=== PATIENT | female | born 1985 | race African-American/Black ===

== ENCOUNTER 2019-09-15 16:49 | Emergency (ER) | payer OTHER ==
[2019-09-15] MEDS ORDERED: ACETAMINOPHEN 325 MG TABLET (FP) PO ONE (16:54)
[2019-09-15] MEDS ORDERED: IBUPROFEN 600 MG TABLET (FP) PO ONE (16:55)
[2019-09-15 17:11] VITALS: BMI 31.1
--- NOTE | 2019-09-15 17:12 | PDOC ---
History of Present Illness - General Chief Complaint: Pain Stated Complaint: LEFT FOOT PAIN FOR OVER 1 MONTH Time Seen by Provider: 09/15/19 16:54 History Source: Patient Exam Limitations: No Limitations - History of Present Illness Initial Comments: Rebecca is a 33 yo F w a hx of anemia, CVA, menorrhagia, blood transfusion (x2) who presents to the [place] ER with 2 months of left foot pain. States she has seen multiple doctors for her pain and has tried tylenol, ibuprofen and icy hot in the past but the pain is particularly intense today so came in for evaluation. She was seen at the [facility] on 07/15 and referred to ortho for her foot pain but she never followed up because she has been busy with her kids. States now she is starting to lose sensation in her left toes and the pain is worsening. Patient denies injury, rash, fever, swelling, recent travel, hormone use, anticoagulation use, recent surgery, recent injury, bedrest, history of malignancy. Patient reported at the time of day does not make a difference in her pain. PCP: Follows at [facility] PSH: 4 C-sections, 1 hernia repair Allergies: NKA, NKDA Social Hx: Smokes 4 cigarettes daily, smokes marijuana daily, drinks recreationally, denies illicit drug usage. Past History - Medical History Allergies/Adverse Reactions: Allergies Allergy/AdvReac Type Severity Reaction Status Date / Time No Known Allergies Allergy Verified 09/15/19 16:51 Home Medications: Ambulatory Orders NK [No Known Home Medication] 09/15/19 Asthma: Yes CVA: Yes (stroke 2009) COPD: No - Surgical History Abdominal Surgery: (hernia) - Reproductive History Therapeutic (s) & number: Yes - Immunization History Td Vaccination: Yes TDAP Vaccination: Yes Immunization Up to Date: Yes - Psycho-Social/Smoking History Smoking History: Current every day smoker Number of Cigarettes Smoked Daily: 5 Information on smoking cessation initiated: Yes 'Breaking Loose' booklet given: 02/14/13 - Substance Abuse Hx (Audit-C & DAST Scrn) How often the patient has a drink containing alcohol: 2-4 times / month Number of drinks the patient has on a typical day: 5 or 6 Score: In Men: 4 or > Positive; In Women: 3 or > Positive: 4 Screen Result (Pos requires Nsg. Audit-10AR): Positive In the last yr the pt used illegal drug/Rx for NonMed reason: Yes Score: Yes response is considered Positive: 1 Screen Result (Positive result requires Nsg. DAST-10): Positive Review of Systems - Review of Systems Able to Perform ROS?: Yes Comments:: CONSTITUTIONAL: Absent: fever, no chills, no fatigue EYES: Absent: visual changes ENT: Absent: ear pain, no sore throat CARDIOVASCULAR: Absent: chest pain, no palpitations RESPIRATORY: Absent: cough, no SOB GI: Absent: abdominal pain, no nausea, no vomiting, no constipation, no diarrhea GENITOURINARY: Absent: dysuria, no frequency, no hematuria MUSKULOSKELETAL: Present: Arthralgia Absent: back pain, no myalgia SKIN: Absent: rash NEURO: Absent: headache *Physical Exam - Vital Signs Last Vital Signs Temp Pulse Resp BP Pulse Ox 98.7 F 100 H 18 143/90 98 09/15/19 16:51 09/15/19 16:51 09/15/19 16:51 09/15/19 16:51 09/15/19 16:51 - Physical Exam LEFT LEG: Normal appearance. Decreased DP and PT pulses. Decreased sensation in left toes compared to right. Normal ROM and 5/5 strength compared to the right foot. No gangrenous areas. Left foot is cold and painful compared to the right foot. Left 4th toe has an ulcer on the bottom of it. GENERAL: Well-appearing, well-nourished. No apparent distress. HEENT: Normocephalic, atraumatic. PERRL, EOM intact. CARDIOVASCULAR: Normal S1, S2. Regular rate and rhythm. PULMONARY: No evidence of respiratory distress. Lungs clear to auscultation bilaterally. No wheezing, rales or rhonchi. ABDOMEN: Soft, non-distended, non-tender. EXTREMITIES: Normal ROM in all four extremities. No gross deformities. SKIN: Warm, dry. No rash NEUROLOGICAL: No focal neurological deficits. ED Treatment Course - LABORATORY CBC & Chemistry Diagram: 09/15/19 19:05 09/15/19 19:05 - RADIOLOGY Radiology Studies Ordered: Category Date Time Status FOOT-LEFT [RAD] Stat Radiology 09/15/19 16:54 Taken Radiograph Interpretation: CTA: CTA abdomen and pelvis: No evidence for abdominal aortic aneurysm or aortic dissection. Celiac trunk, SMA, BETH, and renal arteries are patent. 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 This results in severe (approximately 80-90%) stenosis of this portion of the common iliac artery as well as occlusion of the left internal iliac artery. Right iliac arteries are patent. Mild hepatomegaly. The gallbladder, pancreas, adrenal glands, and spleen are unremarkable. No renal or urinary calculi. Small left ovarian follicles measuring up to 1.4 cm. No evidence for diverticulitis, small bowel obstruction, free fluid, or free air. Appendix not seen with certainty. Fluid and debris in the vaginal vault. CTA left lower extremity:*Occlusion of the distal left superficial femoral artery extending to the tibial peroneal trunk. Several small calf arteries are reconstituted with some contrast noted in the small arteries of the foot on the plantar aspect. Common femoral artery, profunda femoris artery, and proximal and mid portions of the superficial femoral artery are patent. CTA right lower extremity: Common femoral artery, profundus femoral artery, superficial femoral artery, and popliteal artery are patent. Calf arteries are small but many of them contain contrast extending into the plantar and dorsal arteries of the right foot. Medical Decision Making - Medical Decision Making Rebecca is a 33 yo F w a hx of anemia, CVA, menorrhagia, blood transfusion (x2) who presents to the [place] ER with 2 months of left foot pain. States she has seen multiple doctors for her pain and has tried tylenol, ibuprofen and icy hot in the past but the pain is particularly intense today so came in for evaluation. She was seen at the [facility] on 07/15 and referred to ortho for her foot pain but she never followed up because she has been busy with her kids. States now she is starting to lose sensation in her left toes and the pain is worsening. Patient denies injury, rash, fever, swelling, recent travel, hormone use, anticoagulation use, recent surgery, recent injury, bedrest, history of malignancy. Patient reported at the time of day does not make a difference in her pain. Vital Signs Temp Pulse Resp BP Pulse Ox 98.7 F 100 H 18 143/90 98 09/15/19 16:51 09/15/19 16:51 09/15/19 16:51 07/28/20 16:51 09/15/19 16:51 DDx IBNLT: Fracture, vascular pathology, less likely infectious MDM: This patient appears to have an underlying chronic vascular issue but what she is here today for is not acute. She needs chronic vascular, podiatric, and wound care treatment. Plan: XR, basic labs, CTA of extremity to r/o arterial occlusion, analgesia, vascular/podiatry/wound care referal if CTA negative XR: No subQ emphysema or acute fx on my preliminary read EKG: NS rate of 89, pr 160, narrow complexes, qrs 82, normal axis, no hypertrophy, no ST elevations or depressions, QTc 464, TWI in V2 likely persistent juvenile T wave. 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 This results in severe (approximately 80-90%) stenosis of this portion o f the common iliac artery as well as occlusion of the left internal iliac artery. Re-assessment: Patient will be signed out to Dr. Frazier for further ED care. 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
[2019-09-15] MEDS ORDERED: IBUPROFEN 400 MG TABLET (FP) PO ONE (17:30)
[2019-09-15] MEDS ORDERED: ACETAMINOPHEN 500 MG TABLET (FP) ONE (17:30)
--- NOTE | 2019-09-15 17:55 | PDOC ---
Attending Attestation - Resident Resident Name: Lamont Liu - ED Attending Attestation I have performed the following: I have examined & evaluated the patient, The case was reviewed & discussed with the resident, I agree w/resident's findings & plan - HPI HPI: 09/15/19 17:49 33y/o F with sig h/o Anemia requiring transfusions in the past presumably from menorrhagia, CVA x2 with residual right upper extremity weakness and dysarthria presents now with subacute left foot pain progressive over several weeks. Patient reports random intermittent episodes of left toe/distal foot paresthesias, was actually seen on 07/16/2019 for similar complaints, DVT was ruled out at that time and patient was referred to orthopedics. Patient reports intermittent symptoms since then, not necessarily exertional, described primarily as paresthesias. Today at around 3 PM while seated at home, developed what she describes as acute onset of paresthesias and discomfort to her dorsal left foot and toes, so she presents for evaluation. Patient was previously on Eliquis but stopped several months ago secondary to contradictory physician recommendations. She denies any change in her dysarthria, arm or leg weakness otherwise. - Physicial Exam PE: 09/15/19 17:53 Vital signs stable, heart rate 90 on my examination Alert seated comfortably in stretcher speaking full sentences with baseline dysarthria Heart is regular without appreciable murmur, lungs are clear Abdomen benign 4-5 upper extremity strength on the right as per baseline, 5 out of 5 left upper extremity and bilateral lower extremity strength, though 4 out of 5 strength noted on left foot dorsiflexion and toe range of motion. Palpable TP pulse on the left, difficult to palpate DP pulse on the left. Toes are slightly cool on the left, sensation is subjectively decreased, there is otherwise good cap refill but some tenderness to palpation along the dorsum of the foot and ankle without crepitus or cellulitis - Medical Decision Making 09/15/19 17:55 33-year-old female with history of anemia and unclear vasculopathy with history of CVA, off anticoagulation for several months now with progressive symptoms of left foot paresthesias and pain, reportedly acutely worsened at 3 PM and now associated with some distal left foot discomfort and weakness. Overall presentation is not necessarily consistent with CVA or TIA, but peripheral limb ischemia is of concern given the focal findings. No evidence of active gangrene, but the proximal foot tenderness to palpation is somewhat concerning. Check labs CTA of the left lower leg Vascular consult as needed Anticoagulation as needed If above is within normal limits, would refer to wound clinic for chronic vascular disease and possible superimposed neuropathy Heart Score/ECG Review #1 ECG reviewed & interpreted by me at: 18:11 General ECG Interpretation: Sinus Rhythm, Normal Rate (89), Normal Intervals (qtc 464), No acute ischemic changes Discharge - Discharge Information Problems reviewed: Yes Clinical Impression/Diagnosis: Vasculopathy Foot pain Qualifiers: Laterality: left Qualified Code(s): M79.672 - Pain in left foot Condition: Stable Disposition: HOME - Follow up/Referral Referrals: Jean Pierre Beltran DO [Staff Physician] - Bindu Garza DPM [Staff Physician] - - Patient Discharge Instructions Patient Printed Discharge Instructions: DI for Foot Pain, DI for Vasculitis Additional Instructions: You came into the ER with left foot pain. It is very important for you to follow up with the vascular surgeon we are referring you to as well as the foot doctor at the wound clinic. They will be able to best treat your foot pain. You must return to the Emergency Department with any new complaints, if your symptoms persist and do not improve or if you develop any other new or worsening concerns. As discussed, please call to follow up with your Primary Care physician in 1-2 days to discuss what happened to you in the emergency room, and make sure you are being looked after and taken care of. Your emergency room visit is not complete without this follow up appointment. Please read the attached handouts for further information about your ER visit and what you should do moving forward. Thank you for coming to the [place] [facility]. We hope you feel better soon! Print Language: MARTINIQUAIS - Post Discharge Activity
[2019-09-15 19:34] LABS: ALBUMIN 3.6 g/dl (3.4-5.0); BILIRUBIN,TOTAL 0.4 mg/dl (0.2-1); CALCIUM 8.7 mg/dl (8.5-10); CREATININE 0.6 mg/dl (0.55-1.3); MCHC 29.8 g/dl (32.0-36.0); MEAN PLT VOLUME 7.1 fl (7.5-11.1); PLATELET COUNT 429 K/MM3 (134-434); RBC 3.67 M/mm3 (3.60-5.2); RDW 21.3 % (11.6-15.6); TOT PROT 7.1 g/dl (6.4-8.2); WHITE BLOOD COUNT 11.6 K/mm3 (4.0-10.8)
[2019-09-15 19:35] LABS: MCH 17.6 pg (25.7-33.7)
[2019-09-15 19:37] LABS: HEMATOCRIT 21.6 % (32.4-45.2); HEMOGLOBIN 6.4 GM/dl (10.7-15.3)
[2019-09-15 20:05] LABS: ANISOCYTOSIS 3+; PLATELET ESTIMATE SLT INCREASE
--- NOTE | 2019-09-15 23:36 | PDOC ---
*Physical Exam - Vital Signs Last Vital Signs Temp Pulse Resp BP Pulse Ox 98.7 F 100 H 18 143/90 98 09/15/19 16:51 09/15/19 16:51 09/15/19 16:51 09/15/19 16:51 09/15/19 16:51 ED Treatment Course - LABORATORY CBC & Chemistry Diagram: 09/15/19 19:05 09/15/19 19:05 - ADDITIONAL ORDERS Additional order review: Laboratory Results 09/15/19 09/15/19 19:05 19:05 Sodium 134 L Potassium 3.0 L Chloride 98 Carbon Dioxide 25 Anion Gap 11 BUN 4.0 L Creatinine 0.6 Est GFR (CKD-EPI)AfAm 136.87 Est GFR (CKD-EPI)NonAf 118.09 Random Glucose 106 Calcium 8.7 Total Bilirubin 0.4 AST 16 ALT 14 Alkaline Phosphatase 58 Creatine Kinase 48 Total Protein 7.1 Albumin 3.6 Serum , Qual Negative 09/15/19 19:05 RBC 3.67 MCV 59.0 L MCHC 29.8 L RDW 21.3 H MPV 7.1 L Neutrophils % No Result Required. Lymphocytes % No Result Required. - RADIOLOGY Radiology Studies Ordered: Category Date Time Status ABDOMEN CTA AOR & BLE RUNOFF [CT] Stat CT Scan 09/15/19 20:15 Taken - Medications Given in the ED: ED Medications Discontinued Medications Generic Name Dose Route Start Last Admin Trade Name Freq PRN Reason Stop Dose Admin Acetaminophen 1,000 mg 09/15/19 16:54 09/15/19 17:33 Tylenol - PO 09/15/19 16:55 1,000 mg ONCE ONE Administration Ibuprofen 400 mg 09/15/19 16:55 09/15/19 17:32 Motrin - PO 09/15/19 16:56 400 mg ONCE ONE Administration ED Progress Note - Progress Note Progress Note: 09/15/19 1900 This is a 33-year-old female whose care was transferred to ri from Dr. Yañez at 1900 hrs. 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
[2019-09-16] MEDS ORDERED: HEPARIN NA (PORCINE) 5,000 UNITS/ML 1ML VIAL IVPUSH ONE (00:11)
[2019-09-16] MEDS ORDERED: HEPARIN NA (PORCINE) 5,000 UNITS/ML 1ML VIAL ONE (00:39)
[2019-09-16 00:55] VITALS: BP 126/86; PULSE 88; TEMP 98.2
[2019-09-16 01:43] LABS: INR 1.18 (0.83-1.09); PROTHROMBIN TIME (PATIENT) 13.9 SEC (9.7-13.0)
[2019-09-16 01:46] LABS: ACTIVATED PTT 24.8 SECONDS (25.2-36.5)
--- NOTE | 2019-09-16 09:14 | EKG ---
Test Reason : Blood Pressure : / mmHG Vent. Rate : 089 BPM Atrial Rate : 089 BPM P-R Int : 160 ms QRS Dur : 082 ms QT Int : 382 ms P-R-T Axes : 076 076 060 degrees QTc Int : 464 ms NORMAL SINUS RHYTHM NORMAL ECG WHEN COMPARED WITH ECG OF 29-OCT-2015 01:57, NO SIGNIFICANT CHANGE WAS FOUND Confirmed by MD RYAN PENG ([id number]) on 09/16/2019 9:14:35 AM Referred By: DR LEMA Confirmed By:COLTON RYAN MD
== END 2019-09-16 00:56 | disposition short-term general hospital (02) ==
LOC: FER 16:49
PROC: 3E033NZ Introduction of Analgesics, Hypnotics, Sedatives into Peripheral Vein, Percutaneous Approach (ICD-10-PCS; principal; 2019-09-15)
DX: M79.642 Pain in left hand (principal); I70.92 Chronic total occlusion of artery of the extremities
CPT/HCPCS: 36415; 73630-TC-LT; 75635-TC; 80053; 82550; 84703; 85025; 85610; 85730; 93005; 99285-25; J1644; Q9967

== ENCOUNTER 2020-08-08 11:22 | Emergency (ER) | payer OTHER ==
[2020-08-08 11:29] VITALS: BMI 32.8
[2020-08-08] MEDS ORDERED: SODIUM CHLORIDE 1,000 ML IV STA (12:28)
[2020-08-08] MEDS ORDERED: morphine CARPU-JECT 4 MG/1 ML DISP.SYRIN IVPUSH ONE (12:28)
[2020-08-08] MEDS ORDERED: ONDANSETRON 4 MG/2 ML VIAL IVPUSH ONE (12:28)
[2020-08-08] MEDS ORDERED: morphine SULFATE 4 MG/ML VIAL ONE (12:36)
[2020-08-08] MEDS ORDERED: ONDANSETRON 4 MG/2 ML VIAL ONE (12:36)
[2020-08-08 13:33] LABS: CHLORIDE 106 mmol/L (98-107); SODIUM 138 mmol/L (136-145)
[2020-08-08 13:35] LABS: CALCIUM 8.9 mg/dL (8.5-10.1)
[2020-08-08 13:36] LABS: ALBUMIN 3.8 g/dl (3.4-5.0); ANION GAP 8 MMOL/L (8-16); BLOOD UREA NITROGEN 9.6 mg/dL (7-18); CO2 24 mmol/L (21-32); GLUCOSE,RANDOM 95 mg/dL (74-106); LIPASE 67 U/L (73-393)
[2020-08-08 13:39] LABS: CREATININE 0.8 mg/dL (0.55-1.3); HEMATOCRIT 25.1 % (32.4-45.2); HEMOGLOBIN 7.2 GM/dL (10.7-15.3); MCH 15.2 pg (25.7-33.7); MCHC 28.7 g/dl (32.0-36.0); MEAN CELL VOLUME 53.1 fl (80-96); MEAN PLT VOLUME 8.2 fl (7.5-11.1); PLATELET COUNT 481 10^3/uL (134-434); RBC 4.73 M/mm3 (3.60-5.2); RDW 20.6 % (11.6-15.6); SGOT/AST 56 U/L (15-37); SGPT/ALT 16 U/L (13-61); WHITE BLOOD COUNT 14.4 K/mm3 (4.0-10.0)
[2020-08-08 13:40] LABS: BILIRUBIN,TOTAL 0.5 mg/dL (0.2-1); TOT PROT 8.3 g/dl (6.4-8.2)
[2020-08-08 13:42] LABS: ALK PHOS 81 U/L (45-117)
[2020-08-08 14:17] LABS: ANISOCYTOSIS 3+; MACROCYTOSIS 0; PLATELET ESTIMATE NORMAL; TARGET CELLS 1+
[2020-08-08 15:15] LABS: BLOOD UREA NITROGEN 8.9 mg/dL (7-18); CALCIUM 8.4 mg/dL (8.5-10.1)
[2020-08-08 15:19] LABS: CREATININE 0.7 mg/dL (0.55-1.3)
[2020-08-08 15:58] LABS: EPI CELLS 34 /uL (0-25.1); HCG,QUALITATIVE URINE Negative; HYALINE CASTS 5 /uL (0-3.1); PH,URINE 6.5 (5.0-8.0); URINE APPEARANCE CLOUDY; URINE BACTERIA >9,000 /uL (0-1359); URINE BILIRUBIN NEGATIVE (NEGATIVE); URINE COLOR YELLOW; URINE GLUCOSE (UA) NEGATIVE (NEGATIVE); URINE KETONE TRACE (NEGATIVE); URINE LEUK ESTERASE TRACE (NEGATIVE); URINE NITRITE POSITIVE (NEGATIVE); URINE PROTEIN 1+ (NEGATIVE); URINE RBC 18 /uL (0-23.9); URINE WBC 27 /uL (0-25.8)
[2020-08-08 17:59] VITALS: BP 142/81; PULSE 82; TEMP 98.2
== END 2020-08-08 19:07 | disposition home or self-care (01) ==
LOC: JER 11:22
PROC: 3E033NZ Introduction of Analgesics, Hypnotics, Sedatives into Peripheral Vein, Percutaneous Approach (ICD-10-PCS; principal; 2020-08-08)
PROC: 3E033GC Introduction of Other Therapeutic Substance into Peripheral Vein, Percutaneous Approach (ICD-10-PCS; 2020-08-08)
PROC: 3E0337Z Introduction of Electrolytic and Water Balance Substance into Peripheral Vein, Percutaneous Approach (ICD-10-PCS; 2020-08-08)
DX: N10 Acute pyelonephritis (principal)
CPT/HCPCS: 36415; 71046-TC-FY; 74176-TC; 76705-TC; 80048; 80053; 81003; 82550; 82553; 83690; 84484; 84703; 85025; 87086; 87186; 93005; 93010; 99285-25; C9803; U0003; U0005

== ENCOUNTER 2020-09-14 18:24 | Observation (INO) | payer OTHER ==
[2020-09-14 21:43] LABS: HEMATOCRIT 23.8 % (32.4-45.2); MCHC 29.2 g/dl (32.0-36.0); MEAN CELL VOLUME 51.7 fl (80-96); MEAN PLT VOLUME 8.1 fl (7.5-11.1); PLATELET COUNT 386 10^3/uL (134-434); RDW 20.4 % (11.6-15.6); WHITE BLOOD COUNT 10.5 K/mm3 (4.0-10.0)
[2020-09-14 21:54] LABS: CHLORIDE 105 mmol/L (98-107); SODIUM 139 mmol/L (136-145)
[2020-09-14 21:56] LABS: ALBUMIN 3.9 g/dl (3.4-5.0); ANION GAP 8 MMOL/L (8-16); CALCIUM 8.7 mg/dL (8.5-10.1); CO2 27 mmol/L (21-32); GLUCOSE,RANDOM 81 mg/dL (74-106)
[2020-09-14 21:57] LABS: BLOOD UREA NITROGEN 6.1 mg/dL (7-18)
[2020-09-14 21:58] LABS: INR 1.13 (0.83-1.09); PROTHROMBIN TIME (PATIENT) 13.8 SEC (9.7-13.0)
[2020-09-14 21:59] LABS: CREATININE 0.7 mg/dL (0.55-1.3); SGPT/ALT 14 U/L (13-61)
[2020-09-14 22:00] LABS: MCH 15.1 pg (25.7-33.7); SGOT/AST 13 U/L (15-37)
[2020-09-14 22:01] LABS: BILIRUBIN,TOTAL 0.3 mg/dL (0.2-1); HEMOGLOBIN 6.9 GM/dL (10.7-15.3); TOT PROT 8.1 g/dl (6.4-8.2)
[2020-09-14 22:02] LABS: ALK PHOS 77 U/L (45-117)
[2020-09-14 22:39] LABS: ANISOCYTOSIS 3+; MACROCYTOSIS 0; OVALOCYTE 1+; PLATELET ESTIMATE NORMAL; TARGET CELLS 2+
[2020-09-15 01:03] LABS: IRON SERUM 8 ug/dL (50-175); TOTAL IRON BINDING CAPACITY 458 ug/dL (250-450)
[2020-09-15] MEDS ORDERED: IRON SUCROSE INJECTION 100 MG in SODIUM CHLORIDE 95 ML IVPB ONE (05:36)
[2020-09-15] MEDS ORDERED: NICOTINE 7 MG/24 HOURS TOPICAL PATCH TD PRN (05:38)
[2020-09-15 05:57] LABS: HEMATOCRIT 24.5 % (32.4-45.2); HEMOGLOBIN 7.4 GM/dL (10.7-15.3); MCHC 30.3 g/dl (32.0-36.0); MEAN CELL VOLUME 55.8 fl (80-96); MEAN PLT VOLUME 8.2 fl (7.5-11.1); PLATELET COUNT 329 10^3/uL (134-434); RBC 4.38 M/mm3 (3.60-5.2); RDW 20.7 % (11.6-15.6); WHITE BLOOD COUNT 10.2 K/mm3 (4.0-10.0)
[2020-09-15 06:04] LABS: MCH 16.9 pg (25.7-33.7)
[2020-09-15 06:14] LABS: CHLORIDE 109 mmol/L (98-107); SODIUM 142 mmol/L (136-145)
[2020-09-15 06:23] LABS: CALCIUM 8.3 mg/dL (8.5-10.1)
[2020-09-15 06:24] LABS: ALBUMIN 3.2 g/dl (3.4-5.0); ANION GAP 7 MMOL/L (8-16); BLOOD UREA NITROGEN 5.2 mg/dL (7-18); CO2 26 mmol/L (21-32); GLUCOSE,RANDOM 88 mg/dL (74-106)
[2020-09-15 06:26] LABS: SGPT/ALT 10 U/L (13-61)
[2020-09-15 06:27] LABS: CREATININE 0.7 mg/dL (0.55-1.3); SGOT/AST 11 U/L (15-37)
[2020-09-15 06:28] LABS: BILIRUBIN,TOTAL 0.5 mg/dL (0.2-1); TOT PROT 6.7 g/dl (6.4-8.2)
[2020-09-15 06:29] LABS: ALK PHOS 65 U/L (45-117)
[2020-09-15] MEDS ORDERED: FERROUS SO4 300 MG/5 ML ORAL SOLN UNIT DOSE CUPS PO SCH (10:00)
[2020-09-15 13:40] VITALS: BMI 35.4
[2020-09-15] MEDS ORDERED: GABAPENTIN 300 MG CAPSULE PO SCH (14:00)
[2020-09-15 15:34] VITALS: BP 110/52; PULSE 67; TEMP 97.9
== END 2020-09-15 15:58 | disposition left against medical advice (07) ==
LOC: JER 18:24 → INTOOBSV 22:05 → UNDOADMOB 22:05 → JERBED 22:05 → J5S 09-15 07:01 → JERBED 09-15 08:51 → J5S 09-15 08:51
PROVIDERS: ADMIT Internal Medicine; ATTEND Nurse Practitioner Acute Care
PROC: 30233N1 Transfusion of Nonautologous Red Blood Cells into Peripheral Vein, Percutaneous Approach (ICD-10-PCS; principal; 2020-09-15)
PROC: 3E033GC Introduction of Other Therapeutic Substance into Peripheral Vein, Percutaneous Approach (ICD-10-PCS; 2020-09-15)
DX: N92.0 Excessive and frequent menstruation with regular cycle (principal); D62 Acute posthemorrhagic anemia; E66.8 Other obesity; Z68.35 Body mass index [BMI] 35.0-35.9, adult; Z86.19 Personal history of other infectious and parasitic diseases; Z86.73 Personal history of transient ischemic attack (TIA), and cerebral infarction without residual deficits; R47.81 Slurred speech; Z89.612 Acquired absence of left leg above knee; F17.210 Nicotine dependence, cigarettes, uncomplicated
CPT/HCPCS: 36415; 36430; 80053; 82272; 82728; 83540; 83550; 84702; 85025; 85027; 85045; 85610; 86850; 86900; 86901; 86922; 93005; 93010; 93971-TC; 96365; 99285-25; C9803; G0378; J1756; P9058; U0003; U0005

== ENCOUNTER 2021-04-12 00:09 | Emergency (ER) | payer OTHER ==
[2021-04-12 00:43] VITALS: BP 114/79; TEMP 99.1; BMI 32.9
[2021-04-12] MEDS ORDERED: LIDOCAINE 1%/EPI 1:100000 (20 ML MULTI DOSE VIAL) ONE (01:39)
[2021-04-12 03:06] VITALS: PULSE 88
== END 2021-04-12 03:05 | disposition home or self-care (01) ==
LOC: JER 00:09 → JERFT 00:09
PROC: 0H9AXZZ Drainage of Inguinal Skin, External Approach (ICD-10-PCS; principal; 2021-04-12)
DX: L02.214 Cutaneous abscess of groin (principal)
CPT/HCPCS: 99283-25

== ENCOUNTER 2021-04-13 17:59 | Emergency (ER) | payer OTHER ==
[2021-04-13 18:13] VITALS: BP 110/74; PULSE 94; BMI 35.4
== END 2021-04-13 18:58 | disposition home or self-care (01) ==
LOC: JERFT 17:59
DX: L02.214 Cutaneous abscess of groin (principal); Z48.01 Encounter for change or removal of surgical wound dressing
CPT/HCPCS: 99281-25

== ENCOUNTER 2022-01-03 18:53 | Inpatient (IN) | payer OTHER ==
[2022-01-03 21:08] LABS: MCHC 26.3 g/dl (32.0-36.0); MEAN CELL VOLUME 48.9 fl (80-96); MEAN PLT VOLUME 8.2 fl (7.5-11.1); PLATELET COUNT 456 10^3/uL (134-434); RBC 3.88 M/mm3 (3.60-5.2); WHITE BLOOD COUNT 10.4 K/mm3 (4.0-10.0)
[2022-01-03 21:14] LABS: INR 1.31 (0.83-1.09); PROTHROMBIN TIME (PATIENT) 15.1 SEC (9.7-13.0)
[2022-01-03 21:17] LABS: ACTIVATED PTT 34.2 SECONDS (25.2-36.5)
[2022-01-03 21:21] LABS: CALCIUM 8.8 mg/dL (8.5-10.1); MCH 12.9 pg (25.7-33.7)
[2022-01-03 21:22] LABS: ALBUMIN 3.5 g/dl (3.4-5.0); BLOOD UREA NITROGEN 5.7 mg/dL (7-18); MAGNESIUM 1.8 mg/dL (1.8-2.4)
[2022-01-03 21:25] LABS: CREATININE 0.7 mg/dL (0.55-1.3)
[2022-01-03 21:26] LABS: TOT PROT 7.2 g/dl (6.4-8.2)
[2022-01-03 21:27] LABS: BILIRUBIN,TOTAL 0.2 mg/dL (0.2-1)
[2022-01-03 21:58] LABS: ANISOCYTOSIS 3+; MACROCYTOSIS 0; OVALOCYTE 1+
[2022-01-04 03:03] LABS: EPI CELLS 21 /uL (0-25.1); HYALINE CASTS 0 /uL (0-3.1); URINE APPEARANCE CLEAR; URINE BACTERIA >9,000 /uL (0-1359); URINE BILIRUBIN NEGATIVE (NEGATIVE); URINE COLOR YELLOW; URINE GLUCOSE (UA) NEGATIVE (NEGATIVE); URINE KETONE NEGATIVE (NEGATIVE); URINE LEUK ESTERASE TRACE (NEGATIVE); URINE NITRITE NEGATIVE (NEGATIVE); URINE PROTEIN NEGATIVE (NEGATIVE); URINE RBC 3 /uL (0-23.9); URINE UROBILINOGEN 0.2 mg/dL (0.2-1.0); URINE WBC 16 /uL (0-25.8)
[2022-01-04 03:39] VITALS: BMI 35.0
[2022-01-04] MEDS: APIXABAN 5 MG TABLET PO SCH ×2 (09:28→21:19)
[2022-01-04] MEDS ORDERED: ENOXAPARIN NA (PORCINE) 40 MG/0.4 ML DISP.SYRIN SQ SCH (10:00)
[2022-01-04 11:07] LABS: HEMATOCRIT 24.9 % (32.4-45.2); HEMOGLOBIN 7.3 GM/dL (10.7-15.3); MCHC 29.2 g/dl (32.0-36.0); MEAN CELL VOLUME 55.9 fl (80-96); MEAN PLT VOLUME 8.1 fl (7.5-11.1); PLATELET COUNT 374 10^3/uL (134-434); RBC 4.44 M/mm3 (3.60-5.2); RDW 33.4 % (11.6-15.6); WHITE BLOOD COUNT 8.5 K/mm3 (4.0-10.0)
[2022-01-04 11:14] LABS: MCH 16.3 pg (25.7-33.7)
[2022-01-04 11:28] LABS: CALCIUM 8.6 mg/dL (8.5-10.1)
[2022-01-04 11:29] LABS: BLOOD UREA NITROGEN 4.4 mg/dL (7-18)
[2022-01-04 11:32] LABS: CREATININE 0.6 mg/dL (0.55-1.3); PHOSPHOROUS 2.6 mg/dL (2.5-4.9)
[2022-01-04 19:20] LABS: ANISOCYTOSIS 3+; MACROCYTOSIS 1+; OVALOCYTE 1+; TARGET CELLS 1+
[2022-01-04 19:29] LABS: PLATELET ESTIMATE ADEQUATE
[2022-01-05] MEDS ORDERED: FERRIC CARBOXYMALTOSE 750 MG/15 ML VIAL IVPB ONE (08:04)
[2022-01-05] MEDS ORDERED: ACETAMINOPHEN 325 MG TABLET (FP) PO PRN (09:18)
[2022-01-05] MEDS: APIXABAN 5 MG TABLET PO SCH (09:18)
[2022-01-05 09:55] LABS: HEMATOCRIT 25.7 % (32.4-45.2); HEMOGLOBIN 7.5 GM/dL (10.7-15.3); MCHC 29.1 g/dl (32.0-36.0); MEAN CELL VOLUME 56.1 fl (80-96); MEAN PLT VOLUME 8.3 fl (7.5-11.1); PLATELET COUNT 355 10^3/uL (134-434); RBC 4.58 M/mm3 (3.60-5.2); RDW 33.4 % (11.6-15.6); RETICULOCYTES 1.32 % (0.5-1.5); WHITE BLOOD COUNT 8.4 K/mm3 (4.0-10.0)
[2022-01-05 09:56] LABS: MCH 16.3 pg (25.7-33.7)
[2022-01-05 11:07] LABS: ALBUMIN 3.3 g/dl (3.4-5.0); BLOOD UREA NITROGEN 4.4 mg/dL (7-18); CALCIUM 8.7 mg/dL (8.5-10.1); MAGNESIUM 1.9 mg/dL (1.8-2.4)
[2022-01-05 11:10] LABS: CREATININE 0.7 mg/dL (0.55-1.3); PHOSPHOROUS 2.9 mg/dL (2.5-4.9)
[2022-01-05 11:12] LABS: BILIRUBIN,TOTAL 1.9 mg/dL (0.2-1); TOT PROT 6.9 g/dl (6.4-8.2)
[2022-01-05 11:24] LABS: ANISOCYTOSIS 3+; MACROCYTOSIS 0; TARGET CELLS 2+; TEAR DROP CELLS 1+
[2022-01-05] MEDS ORDERED: IRON SUCROSE INJECTION 200 MG in SODIUM CHLORIDE 90 ML IVPB ONE (12:00)
[2022-01-05 15:42] VITALS: BP 107/66; PULSE 79; TEMP 98.2
[2022-01-05 20:34] VITALS: RESP 18
== END 2022-01-05 21:30 | disposition home or self-care (01) | DRG 532 ==
LOC: JER 18:53 → JERBED 21:32 → OBSVTOIN 01-04 00:44 → J6S 01-04 00:54
PROVIDERS: ADMIT Internal Medicine; ATTEND Internal Medicine
PROC: 30233N1 Transfusion of Nonautologous Red Blood Cells into Peripheral Vein, Percutaneous Approach (ICD-10-PCS; principal; 2022-01-03)
DX: N92.0 Excessive and frequent menstruation with regular cycle (principal); D50.0 Iron deficiency anemia secondary to blood loss (chronic); R53.1 Weakness; R11.10 Vomiting, unspecified; F17.210 Nicotine dependence, cigarettes, uncomplicated; F12.90 Cannabis use, unspecified, uncomplicated; R01.1 Cardiac murmur, unspecified; D25.9 Leiomyoma of uterus, unspecified; N83.202 Unspecified ovarian cyst, left side; N83.201 Unspecified ovarian cyst, right side; Z89.512 Acquired absence of left leg below knee; Z86.73 Personal history of transient ischemic attack (TIA), and cerebral infarction without residual deficits
CPT/HCPCS: 0241U-QW; 36415; 36430; 71045-TC-FY; 76830-TC; 80048; 80053; 81003; 82728; 83540; 83550; 83735; 84100; 84703; 85025; 85027; 85045; 85610; 85730; 86850; 86900; 86901; 86922; 93005; 93010; 93306-TC; 97116-GP; 97162-GP; 99285-25; G0378; J1756; P9058

== ENCOUNTER 2022-05-19 13:54 | Observation (INO) | payer OTHER ==
[2022-05-19 14:26] VITALS: RESP 18
[2022-05-19 15:34] LABS: INR 1.56 (0.83-1.09)
[2022-05-19 15:37] LABS: ACTIVATED PTT 36.2 SECONDS (25.2-36.5)
[2022-05-19 15:49] LABS: ALBUMIN 3.4 g/dl (3.4-5.0); BLOOD UREA NITROGEN 7.3 mg/dL (7-18); CALCIUM 8.8 mg/dL (8.5-10.1)
[2022-05-19 15:52] LABS: CREATININE 0.8 mg/dL (0.55-1.3)
[2022-05-19 15:54] LABS: BILIRUBIN,TOTAL 0.4 mg/dL (0.2-1); TOT PROT 7.4 g/dl (6.4-8.2)
[2022-05-19 15:59] LABS: HEMATOCRIT 20.5 % (32.4-45.2); MCHC 28.2 g/dl (32.0-36.0); MEAN PLT VOLUME 8.2 fl (7.5-11.1); PLATELET COUNT 353 10^3/uL (134-434); RBC 4.01 M/mm3 (3.60-5.2); RDW 20.9 % (11.6-15.6); WHITE BLOOD COUNT 7.1 K/mm3 (4.0-10.0)
[2022-05-19 16:02] LABS: MCH 14.4 pg (25.7-33.7)
[2022-05-19 16:03] LABS: HEMOGLOBIN 5.8 GM/dL (10.7-15.3)
[2022-05-19 16:46] LABS: ANISOCYTOSIS 3+; MACROCYTOSIS 0; OVALOCYTE 1+; TARGET CELLS 2+
[2022-05-19] MEDS ORDERED: POLYETHYLENE GLYCOL (HEALTHYLAX) 3350 17 GM PACKET PO PRN (17:51)
[2022-05-19] MEDS ORDERED: IRON SUCROSE INJECTION 100 MG in SODIUM CHLORIDE 95 ML IVPB ONE (17:53)
[2022-05-19 18:26] LABS: EPI CELLS 14 /uL (0-25.1); HYALINE CASTS 1 /uL (0-3.1); PH,URINE 6.5 (5.0-8.0); URINE APPEARANCE CLEAR; URINE BACTERIA >9,000 /uL (0-1359); URINE BILIRUBIN NEGATIVE (NEGATIVE); URINE COLOR YELLOW; URINE GLUCOSE (UA) NEGATIVE (NEGATIVE); URINE KETONE NEGATIVE (NEGATIVE); URINE LEUK ESTERASE NEGATIVE (NEGATIVE); URINE NITRITE POSITIVE (NEGATIVE); URINE PROTEIN NEGATIVE (NEGATIVE); URINE RBC 22 /uL (0-23.9); URINE UROBILINOGEN 0.2 mg/dL (0.2-1.0); URINE WBC 15 /uL (0-25.8)
[2022-05-20 05:27] VITALS: BMI 33.0
[2022-05-20] MEDS ORDERED: FERROUS SO4 325 MG TABLET (FP) PO SCH (10:00)
[2022-05-20] MEDS ORDERED: IRON SUCROSE INJECTION 100 MG in SODIUM CHLORIDE 95 ML IVPB ONE (10:44)
[2022-05-20 14:45] VITALS: BP 122/77; PULSE 74; TEMP 99.1
[2022-05-20 15:07] LABS: HEMATOCRIT 24.5 % (32.4-45.2); HEMOGLOBIN 7.4 GM/dL (10.7-15.3); MCHC 30.4 g/dl (32.0-36.0); MEAN PLT VOLUME 7.9 fl (7.5-11.1); PLATELET COUNT 286 10^3/uL (134-434); RBC 4.15 M/mm3 (3.60-5.2); RDW 33.4 % (11.6-15.6); WHITE BLOOD COUNT 7.1 K/mm3 (4.0-10.0)
[2022-05-20 15:21] LABS: MEAN CELL VOLUME 59.1 fl (80-96)
[2022-05-20 15:26] LABS: CALCIUM 8.6 mg/dL (8.5-10.1)
[2022-05-20 15:27] LABS: BLOOD UREA NITROGEN 5.3 mg/dL (7-18)
[2022-05-20 15:30] LABS: CREATININE 0.7 mg/dL (0.55-1.3)
[2022-05-20 16:19] LABS: ANISOCYTOSIS 3+; MACROCYTOSIS 0; OVALOCYTE 1+; TARGET CELLS 1+; TEAR DROP CELLS 1+
== END 2022-05-20 17:19 | disposition home or self-care (01) ==
LOC: JER 13:54 → JERBED 16:19 → J8W 05-20 00:29
PROVIDERS: ADMIT Internal Medicine; ATTEND Nurse Practitioner Family
PROC: 3E033GC Introduction of Other Therapeutic Substance into Peripheral Vein, Percutaneous Approach (ICD-10-PCS; principal; 2022-05-19)
PROC: 30233N1 Transfusion of Nonautologous Red Blood Cells into Peripheral Vein, Percutaneous Approach (ICD-10-PCS; 2022-05-19)
DX: D50.9 Iron deficiency anemia, unspecified (principal); F12.10 Cannabis abuse, uncomplicated; N92.1 Excessive and frequent menstruation with irregular cycle; Z86.73 Personal history of transient ischemic attack (TIA), and cerebral infarction without residual deficits; R42 Dizziness and giddiness; F17.210 Nicotine dependence, cigarettes, uncomplicated; D64.9 Anemia, unspecified; J45.909 Unspecified asthma, uncomplicated
CPT/HCPCS: 0241U-QW; 36415; 36430; 71045-TC-FY; 80048; 80053; 81003; 82272; 84484; 84703; 85025; 85610; 85730; 86850; 86900; 86901; 86922; 93005; 93010; 96365; 99285-25; G0378; J1756; P9058

== ENCOUNTER 2022-12-24 10:21 | Day surgery (SDC) | payer OTHER ==
[~2022-12-24 10:21] MED LIST: FERRIC CARBOXYMALTOSE 750 MG in SODIUM CHLORIDE 250 ML IVPB ONE
[2022-12-24 14:31] VITALS: BP 115/60; PULSE 60; RESP 18; TEMP 98.8
== END 2022-12-24 12:35 | disposition home or self-care (01) ==
LOC: JONCNONCHE 10:21 → J7W 10:22 → JONCNONCHE 12:35
PROVIDERS: ATTEND Internal Medicine Hematology & Oncology
PROC: 3E033GC Introduction of Other Therapeutic Substance into Peripheral Vein, Percutaneous Approach (ICD-10-PCS; principal; 2022-12-24)
DX: D50.0 Iron deficiency anemia secondary to blood loss (chronic) (principal)
CPT/HCPCS: 96365; J1439

== ENCOUNTER 2023-07-16 10:44 | Emergency (ER) | payer OTHER ==
[2023-07-16 11:02] VITALS: RESP 18; BMI 35.4
[2023-07-16] MEDS: SODIUM CHLORIDE 0.9% 500 ML INFUS.BAG IV ONE (11:29)
[2023-07-16 11:32] LABS: BASO % 0.5 % (0-2.0); HEMATOCRIT 40.4 % (32.4-45.2); HEMOGLOBIN 12.9 GM/dL (10.7-15.3); LYMPH % 16.4 % (8-40); MCH 25.7 pg (25.7-33.7); MCHC 31.9 g/dl (32.0-36.0); MEAN CELL VOLUME 80.4 fl (80-96); MEAN PLT VOLUME 7.4 fl (7.5-11.1); MONO % 4.5 % (3.8-10.2); NEUT % 77.6 % (42.8-82.8); PLATELET COUNT 311 10^3/uL (134-434); RBC 5.02 M/mm3 (3.60-5.2); RDW 15.6 % (11.6-15.6); WHITE BLOOD COUNT 13.6 K/mm3 (4.0-10.0)
[2023-07-16] MEDS ORDERED: ONDANSETRON 4 MG/2 ML VIAL ONE (11:38)
[2023-07-16] MEDS: ONDANSETRON 4 MG/2 ML VIAL IVPUSH ONE (11:41)
[2023-07-16] MEDS ORDERED: FAMOTIDINE 20 MG/50 ML IVPB 20 MG/50 ML MG IVPB ONE (11:43)
[2023-07-16] MEDS ORDERED: ACETAMINOPHEN INJECTION 100 ML IVPB ONE (11:43)
[2023-07-16] MEDS: FAMOTIDINE 20 MG/50 ML IVPB 20 MG/50 ML MG IVPB ONE (11:44)
[2023-07-16] MEDS: ACETAMINOPHEN 1000 MG/100 ML BAG IVPB ONE (11:44)
[2023-07-16 12:06] LABS: POTASSIUM 3.2 mmol/L (3.5-5.1)
[2023-07-16 12:08] LABS: ALBUMIN 4.1 g/dl (3.4-5.0); CALCIUM 9.8 mg/dL (8.5-10.1)
[2023-07-16 12:11] LABS: CREATININE 0.8 mg/dL (0.55-1.3)
[2023-07-16 12:13] LABS: BILIRUBIN,TOTAL 0.4 mg/dL (0.2-1)
[2023-07-16] MEDS ORDERED: POTASSIUM CHLORIDE ORAL LIQUID 20 MEQ/15 ML ONE (13:59)
[2023-07-16 14:13] VITALS: BP 108/75; PULSE 78
[2023-07-16] MEDS: POTASSIUM CHLORIDE TABS 20 MEQ TABLET.ER (FP) PO ONE (14:13)
[2023-07-16] MEDS: POTASSIUM CHLORIDE ORAL LIQUID 20 MEQ/15 ML PO ONE (14:13)
== END 2023-07-16 14:14 | disposition home or self-care (01) ==
LOC: JER 10:44
PROC: 3E033GC Introduction of Other Therapeutic Substance into Peripheral Vein, Percutaneous Approach (ICD-10-PCS; principal; 2023-07-16)
PROC: 3E033GC Introduction of Other Therapeutic Substance into Peripheral Vein, Percutaneous Approach (ICD-10-PCS; 2023-07-16)
PROC: 3E033NZ Introduction of Analgesics, Hypnotics, Sedatives into Peripheral Vein, Percutaneous Approach (ICD-10-PCS; 2023-07-16)
DX: R11.2 Nausea with vomiting, unspecified (principal); R10.84 Generalized abdominal pain
CPT/HCPCS: 36415; 80053; 83690; 84703; 85025; 99284-25; J0131